=== PATIENT | male | born 1980 ===

== ENCOUNTER 2019-06-20 11:47 | Outpatient (CLI) | payer OTHER, SELFPAY ==
--- NOTE | 2019-06-20 | US_ITS ---
WS: [id number] RIGHT UPPER QUADRANT ULTRASOUND HISTORY: ELEVATED LIVER ENZYMES COMPARISON: None available. Liver: 22 cm in length. Markedly enlarged liver with diffuse attenuation and increased echogenicity. Incompletely visualized liver. Mass and intrahepatic dilatation cannot be excluded. Gallbladder: Gallbladder is poorly visualized. No stones are identified. CBD: 2.8 mm Pancreas: Not visualized. Right kidney: 11.2 cm in length. Normal echogenicity with no mass or hydronephrosis. Aorta and IVC: Unremarkable. No ascites. US/US liver [id number] IMPRESSION: 1. Significantly limited evaluation of RIGHT upper quadrant. 2. Severe hepatomegaly and hepatic steatosis. 3. Limited gallbladder, no evidence for acute cholecystitis.
== END 2019-06-20 11:48 | disposition home or self-care (01) ==
LOC: RADOUTREAD 06-21 11:47
PROVIDERS: Family Provider Internal Medicine; Visit Provider Family Medicine
DX: R74.8 Abnormal levels of other serum enzymes (principal); R16.0 Hepatomegaly, not elsewhere classified; K76.0 Fatty (change of) liver, not elsewhere classified
CPT/HCPCS: 76705

== ENCOUNTER 2025-04-10 18:13 | Inpatient (IN) | payer SELFPAY ==
[2025-04-10] VITALS (11 sets, daily range): BP systolic 139–180; BP diastolic 89–117; PULSE 74–106; RESP 16–27; TEMP 36.6–36.9; O2SAT 94–98; BMI 31.4; BMI 32.1
--- NOTE | 2025-04-10 18:14 | ECG_ITS ---
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 Measurements Intervals [place] Rate: 97 P: 51 AL: 138 QRS: 9 QRSD: 103 T: 26 QT: 348 QTc: 443 Interpretive Statements SINUS RHYTHM WITH SINUS ARRHYTHMIA NONSPECIFIC ST changes No previous ECG available for comparison Electronically Signed On 04-12-2025 17:47:11 WIRE CHARGER by Jag Dawson M.D. [id number] [id number]
--- OUTSIDE RECORDS SUMMARY | 2025-04-10 18:22 | XMS_ITS | Data Portability ---
Author Organization [facility]an [facility], [facility] Address [address] [address] [place] [address] Assessment No assessment recorded. Plan of Treatment Reminders Order Date Submit Date Provider Last Modified By Organization Details Last Modified Time Details Appointments None record ed. Lab None record ed. Referral None record ed. Procedures None record ed. Surgeries None record ed. Imaging None record ed. Medication Orders None record ed. Patient TargetsNo targets recorded. Patient InstructionsNo instructions recorded. Reason for Referral None Reported. Problems Name Problem SNOMED Code Status Onset Date Resolution Date Notes Provider Name and Address Organization Details Recorded Time Deviated nasal septum [id number] Active 2019 Deviated Septum; 0 1:30PM by Mago Ospina LPN, Office Visit; Promoted; acuity set as *; Not Available [facility] 3 03:12:30 Problem Notes None recorded. Procedures Surgical History Date Name Laterality Status Provider Name and Address Organization Details Recorded Time repair of nose completed Martita CHAMBERS Martinez [facility] LAngelLShell 10/17/2023 14:42:54 Imaging Results None recorded. Procedure Notes None recorded. Medical Equipment None Reported. Allergies No known drug allergies Vitals Date Recorded Body height Body mass index (BMI) Body weight Oxygen saturation Heart rate Respiratory rate Body temperature Systolic And Diastolic Provider Name and Address Organization Details Last Updated DateTime 4 180.34 cm 31.7 kg/m2 711572. 9 g 99 % 78 /min 17 /min 97.8 [degF] 160/110 mm[Hg] Martita CHAMBERS [facility] LAngelLShell 14:48:13 Social History Question Answer Notes LastModified by Organizat ion Details LastModified Time Tobacco Smoking Status Never Smoker REYES [facility] 10/17/2023 14:42:14 What Was The Date Of Your Most Recent Tobacco Screening? 10/17/2023 Information not available 10/17/2023 Sex: Unknown Functional Status Question Answer Note LastModified by Organizat ion Details LastModified Time Do you use any illicit or recreational drugs? No Information not available 10/17/2023 What is your level of alcohol consumption? Occasional Information not available 10/17/2023 Mental Status None recorded. Family History Nothing Reported. Medical History Condition Response Coronary Artery Disease N Gout N Other N Blood Diseases N Kidney Stones N Hyperthyroidism N Blood Transfusion N Breast Cancer N Depression N COPD N Lung Disease N Hypothyroidism N Developmental or Behavioral Disorders N Defects or Inherited Disease N Breast Problem N Difficulty Swallowing N Anesthesia Complications N Anxiety Disorder N Meniere's disease N Muscle, Joint, or Bone Problems N Vision or Eye Problems N Arthritis N Polyps N Infertility N Cancer N Varicosities N Stroke N Endometriosis N Bladder or Kidney Problems N High Cholesterol N Liver Disease N Headaches N Fibromyalgia N Kidney Disease N Allergies/Hayfever N Heart Problems N Ear or Hearing Problems N Hospitalizations N Thyroid Problems N GI Problems N ADD/ADHD N Skin Problems N Eating Disorder N Anemia N Constipation N Mental Illness N Ovarian Cancer N Diabetes N Bedwetting N Seizures/Epilepsy N Tuberculosis N Eczema N Diverticulitis N Abuse/Domestic Violence N Asthma N Reflux/GERD N Hepatitis N Heart Disease N Pulmonary Embolism N Chronic Ear Infections N Pre-Eclampsia N Hypertension N Chicken Pox N Autism Spectrum Disorder (ASD) N Osteoporosis N Thrombophilias N Immunizations Vaccine Type Date Status Note Provider Nam e and Address Organization Details Recorded Time Tdap 09/15/2016 completed Martita min [place] Lynda [facility] 10/17/2023 14:38:50 Td (adult) 06/08/2019 completed Not Available [facility] 12/12/2022 02:27:33 Past Encounters Encounter ID Performer Location Encounter Start Date Encounter Closed Date Diagnosis/Indication Diagnosis SNOMED-CT Code Diagnosis ICD10 Code Diagnosis IMO Codes Diagnosis Note [id number] TANK JOSÉ MANUEL ZAZUETA [facility] ([facility]) [address] [place] [address] 10/17/2023 14:34:07 10/20/2023 07:42:09 Prepatellar bursitis of right knee [id number] 58521 M70.41 MANISH bandage applied. Discussed to wear MANISH for next week for compressio n, apply ice for 10 minutes every 2 hours, limit bending down and applying weight to the right knee. Showed patient an example of knee protectors to wear to prevent this from ocurring in the future. Continue ibuprofen. F/u if symptoms persist after next 1 week. Health Concerns Section Related Observation LastModified by Organization Detai ls LastModified Time None Recorded Concern Status LastModified by Organization Details LastModified Time None Recorded Advance Directives Directive None Recorded Payers Insurance Date Sequence Insurance Name Policy Number Policy Prado Covered Member ID Prado Member ID Guarantor Name 10/17/2023 1 [facility] (MEDICAID REPLACEMENT - HMO) [facility] Maverick Anderson [id number] Maverick Anderson Notes Date Note Type Note Provider Name and Address Organization Details Recorded Time 4 text/html Musculoskeletal PainReported by PatientHPIFor quality, patient reportssharpanddull. For severity, patient reportsworsening,interferes with sleep, andinterferes with work/school. For location, patient reportsright knee. For duration, patient reportspresent <1 month. For timing, patient reportsdate of onset: (),constant, andsudden. For context, patient reportstraumaandunusual activity. For alleviating factors, patient reportsrest,changing position, andmedications: motrin, tylenol. For aggravating factors, patient reportsmovement/positioning ,bending over, andtwisting. For associated symptoms, patient reportsno fever,no weak limbs,no tingling,no numbness of the legs/feet, andno incontinence.ROS as noted in the HPI Pt reports pain in right knee. Knee has been swollen. He stands on concrete with his job and is on his knees working. night, discomfort and swelling started. Bought a brace to help. Has taken 2 ibuprofen and 1 Tylenol every 6 hours, with some relief.Denies trauma to the knee. TANK ZAZUETA, FANCY SEWER [address] [place], [address], [facility] 10/18/2023 07:48:52
--- NOTE | 2025-04-10 18:50 | W.ED.ARRPALP ---
Documented by User: CARLOS Espana 04/10/25 20:54 HPI - Arrhythmia/Palpitations General: Chief Complaint: Arrhythmia/Palpitations Stated Complaint: high bp History of Present Illness: Patient is a pleasant 44-year-old gentleman without primary care, on no medications, presents to the emergency room with palpitations, and chest pain. He describes his transient chest pain this morning, as his esophagus being squeezed. Patient is a dry wall installations mechanic, was working on his shop, stood up, had a headache, palpitations. He blamed it on carbon oxide in the garage he was working on. His uncle took his blood pressure which was notably very high. His uncle gave him 1 to his lisinopril/HCTZ, and baby aspirin. This occurred at 9 AM this morning. He is just now seeking care. He does not have chest pain, or palpitations at this time. He denies any symptoms of shortness of breath. He had mild nausea and diaphoresis. This resolved quickly this morning. Initial EKG does not show any ST segment elevation. There are Q waves in lead III. Associated symptoms: Reports nausea; Deny anxiety or vomiting Related Data Home Medications ?Medication ?Instructions ?Recorded ?Confirmed acetaminophen 325 mg tablet 650 mg PO PRN 04/11/25 04/11/25 (Tylenol) pseudoephedrine HCl 30 mg tablet 30 mg PO Q6H PRN Congestion 04/11/25 04/11/25 (Sudafed) Allergies Allergy/AdvReac Type Severity Reaction Status Date / Time No Known Allergies Allergy Verified 04/10/25 18:24 Review of Systems General: Reports: 10 or more systems reviewed and unremarkable except in HPI and below Const: Denies: fever(s) or chills ENMT: Denies: throat pain or mouth pain Card: Reports: chest pain (earlier), palpitations and lightheadedness; Denies: irregular heart rhythm Resp: Reports: dyspnea (transient) GI: Reports: nausea; Denies: abdominal pain or vomiting : Denies: flank pain or difficulty urinating Musc: Denies: neck pain or back pain Skin/Breast: Denies: rash or pruritus Neuro: Reports: headache(s); Denies: numbness in extremities Psych: Denies: anxiety or depression Physical Exam Const: COMMON NORMALS: no acute distress, average body habitus, patient oriented x3, no limitations, healthy appearing, alert and well nourished HENMT: COMMON NORMALS: normocephalic and atraumatic HEAD & SCALP: normocephalic and atraumatic Neck/C-Spine: COMMON NORMALS: full ROM and no lymphadenopathy Lymph: LYMPHATIC: no lymphadenopathy noted Chest: COMMONS NORMALS: normal inspection of the chest and normal palpation of entire chest wall Resp: COMMON NORMALS: normal respiratory effort, No retractions, No use of accessory muscles and clear to auscultation bilaterally EFFORT & INSPECTION: Yes able to speak in complete sentences AUSCULTATION: clear to auscultation bilaterally Cardio: COMMON NORMALS: regular rate and regular rhythm RATE: regular rate RHYTHM: regular rhythm GI: COMMON NORMALS: Normal to inspection, nondistended, normoactive bowel sounds present, Soft to palpation, non-tender and No hepatosplenomegaly present PALPATION: Yes Soft to palpation and Yes No hepatosplenomegaly present : COMMON NORMALS: Yes no CVA tenderness BLADDER/KIDNEY EXAM: Yes no CVA tenderness Back/Pelvis: COMMON NORMALS: no CVA tenderness and thoracic and lumbar spine normal to inspection Extremity: COMMON NORMALS: normal to inspection and capillary refill normal Neuro: COMMON NORMALS: patient oriented x3, CN's II-XII intact bilaterally and moves all extremities SENSORIUM/ORIENTATION: Yes alert Psych: COMMON NORMALS: mental status grossly normal, Normal thought process present and cooperative THOUGHT PROCESS: Normal thought process present Course Consultations: Consultation #1: D/w Dr. Rapp, cardiology, that we will consult in a.m. unless patient has continued chest pain at which time we can call him again Consultation #2: D/w Dr. Wise accepted admission Vital Signs: Vital signs: Vital Signs Temperature 97.9 F 04/10/25 23:54 Pulse Rate 77 04/11/25 04:00 Respiratory Rate 26 H 04/11/25 04:00 Blood Pressure 150/98 04/11/25 04:00 Pulse Oximetry 96 04/11/25 04:00 Oxygen Delivery Me thod Room Air 04/10/25 23:54 MDM - Arrhythmia/Palpitations Medical Decision Making Patient is a 44-year-old gentleman that presents to the ED with a squeezing esophagus type pain, associated with palpitations, shortness of breath, mild nausea, lightheadedness, and minimal sweating, that resolved and was transient this morning. His initial EKG showed Q waves in lead III. His uncle gave him lisinopril/HCTZ that belonged to him when he noted his blood pressure was high, and a baby aspirin. He sought care this afternoon with resolved symptoms. Blood pressure was high on presentation. Workup was started. Patient was noted to have NSTEMI, and a Q wave IN with initial troponin elevated at 975. Discussed the case with on-call placement director the recommended heparinizing patient, nitroglycerin paste. He will consult in a.m. and less needed tonight. He has received his aspirin full dose. Dr. Wise accepted admission as hospitalist. Discussed with attending/Dr. Pack. Medical Records I reviewed the patient's medical records. Lab Data I reviewed the patient's lab results. 04/10/25 18:46 04/10/25 18:46 Radiology Impressions Chest X-Ray 04/10/25 19:28 IMPRESSION: No acute findings. Laboratory Results WBC 14.10 10^3/uL (3.29-11.43) H 04/10/25 18:46 RBC 3.27 10^6/uL (3.85-5.65) L 04/10/25 18:46 Hgb 11.40 g/dL (11.27-16.99) 04/10/25 18:46 Hct 31.1 % (37-53) L 04/10/25 18:46 MCV 95.1 fl (82-101) 04/10/25 18:46 MCH 34.9 pg (27-33) H 04/10/25 18:46 MCHC 36.7 g/dL (30-55) 04/10/25 18:46 RDW 13.2 % (12.1-15.1) 04/10/25 18:46 Plt Count 131 10^3/cmm (157-399) L 04/10/25 18:46 MPV 9.4 fL (7.4-10.4) 04/10/25 18:46 Neut % (Auto) 4.5 % 04/10/25 18:46 Lymph % (Auto) 47.7 % 04/10/25 18:46 [place] % (Auto) 47.2 % 04/10/25 18:46 Eos % (Auto) 0.2 % 04/10/25 18:46 Baso % (Auto) 0.1 % 04/10/25 18:46 Neut # (Auto) 0.62 10^3/uL (1.8-7.7) L* 04/10/25 18:46 Lymph # (Auto) 6.7 10^3/uL (0.8-4.8) H 04/10/25 18:46 [place] # (Auto) 6.7 10^3/uL (0.2-0.9) H 04/10/25 18:46 Eos # (Auto) 0.0 10^3/uL (0.0-0.8) 04/10/25 18:46 Baso # (Auto) 0.0 10^3/uL (0.0-0.1) 04/10/25 18:46 Nucleated RBC % (auto) 1.5 % 04/10/25 18:46 Nucleated RBCs # 0.2 /100WBC 04/10/25 18:46 APTT 28.9 SECONDS (23.9-36.7) 04/10/25 18:46 Sodium 136 mmol/L (136-145) 04/10/25 18:46 Potassium 4.0 mmol/L (3.5-5.1) 04/10/25 18:46 Chloride 98 mmol/L (98-107) 04/10/25 18:46 Carbon Dioxide 24 mmol/L (22-29) 04/10/25 18:46 Anion Gap 18.0 (5-19) 04/10/25 18:46 BUN 10 mg/dL (6-20) 04/10/25 18:46 Creatinine 0.8 mg/dL (0.7-1.2) 04/10/25 18:46 GFR Calculation 104.5 mL/min (90-130) 04/10/25 18:46 Glucose 129 mg/dL (65-115) H 04/10/25 18:46 Calculated Osmolality 283 mOsm/kg (285-295) L 04/10/25 18:46 Calcium 9.3 mg/dL (8.5-10.5) 04/10/25 18:46 Magnesium 2.1 mg/dL (1.7-2.3) 04/10/25 18:46 Total Bilirubin 0.7 mg/dL (0.15-1.2) 04/10/25 18:46 AST 68 U/L (0-40) H 04/10/25 18:46 ALT 20 U/L (0-41) 04/10/25 18:46 Alkaline Phosphatase 92 U/L (40-130) 04/10/25 18:46 Troponin T Baseline 976 ng/L (0-15) H* 04/10/25 18:46 Troponin T 120 Minute 1235 ng/L (0-15) H 04/10/25 20:48 Delta Troponin T 259 ABS# (0-10) H* 04/10/25 20:48 Total Protein 8.4 g/dL (6.6-8.7) 04/10/25 18:46 Albumin 4.7 g/dL (3.5-5.2) 04/10/25 18:46 Globulin 3.7 g/dL (1.3-4.6) 04/10/25 18:46 TSH 1.58 uIU/mL (0.27-4.20) 04/10/25 18:46 All radiology interpretation(s) finalized by discharge ED provider radiology interpretation(s): No acute findings EKG Data EKG 1: Interpretation: Q waves in lead III, nonspecific changes in aVF, LVH, normal axis, sinus rhythm, rate 97 Other EKG comments: Chest X-Ray 04/10/25 19:28 IMPRESSION: No acute findings. EKG 2: Interpretation: Q waves lead III, LVH nonspecific changes aVF Other EKG comments: Chest X-Ray 04/10/25 19:28 IMPRESSION: No acute findings. Discharge Plan Discharge Patient Disposition: Admitted As Inpatient Admit Provider: Mal Wise Clinical Impression: Acute non-ST elevation myocardial infarction (NSTEMI) Condition: Stable Coding Level of Care Code ED Claims Processor for Chg Fwd Documented by User: Pepito Pack DO 04/11/25 04:35 HPI - Arrhythmia/Palpitations General: Chief Complaint: Arrhythmia/Palpitations Stated Complaint: high bp Related Data Home Medications ?Medication ?Instructions ?Recorded ?Confirmed acetaminophen 325 mg tablet 650 mg PO PRN 04/11/25 04/11/25 (Tylenol) pseudoephedrine HCl 30 mg tablet 30 mg PO Q6H PRN Congestion 04/11/25 04/11/25 (Sudafed) Allergies Allergy/AdvReac Type Severity Reaction Status Date / Time No Known Allergies Allergy Verified 04/10/25 18:24 Course Vital Signs: Vital signs: Vital Signs Temperature 97.9 F 04/10/25 23:54 Pulse Rate 77 04/11/25 04:00 Respiratory Rate 26 H 04/11/25 04:00 Blood Pressure 150/98 04/11/25 04:00 Pulse Oximetry 96 04/11/25 04:00 Oxygen Delivery Me thod Room Air 04/10/25 23:54 MDM - Arrhythmia/Palpitations Medical Decision Making Patient is a 44-year-old gentleman that presents to the ED with a squeezing esophagus type pain, associated with palpitations, shortness of breath, mild nausea, lightheadedness, and minimal sweating, that resolved and was transient this morning. His initial EKG showed Q waves in lead III. His uncle gave him lisinopril/HCTZ that belonged to him when he noted his blood pressure was high, and a baby aspirin. He sought care this afternoon with resolved symptoms. Blood pressure was high on presentation. Workup was started. Patient was noted to have NSTEMI, and a Q wave IN with initial troponin elevated at 975. Discussed the case with on-call placement director the recommended heparinizing patient, nitroglycerin paste. He will consult in a.m. and less needed tonight. He has received his aspirin full dose. Dr. Wise accepted admission as hospitalist. Discussed with attending/Dr. Pack. Chart reviewed and patient discussed with midlevel. Agree with assessment and plan. Lab Data 04/10/25 18:46 04/10/25 18:46 Radiology Impressions Chest X-Ray 04/10/25 19:28 IMPRESSION: No acute findings. Laboratory Results WBC 14.10 10^3/uL (3.29-11.43) H 04/10/25 18:46 RBC 3.27 10^6/uL (3.85-5.65) L 04/10/25 18:46 Hgb 11.40 g/dL (11.27-16.99) 04/10/25 18:46 Hct 31.1 % (37-53) L 04/10/25 18:46 MCV 95.1 fl (82-101) 04/10/25 18:46 MCH 34.9 pg (27-33) H 04/10/25 18:46 MCHC 36.7 g/dL (30-55) 04/10/25 18:46 RDW 13.2 % (12.1-15.1) 04/10/25 18:46 Plt Count 131 10^3/cmm (157-399) L 04/10/25 18:46 MPV 9.4 fL (7.4-10.4) 04/10/25 18:46 Neut % (Auto) 4.5 % 04/10/25 18:46 Lymph % (Auto) 47.7 % 04/10/25 18:46 [place] % (Auto) 47.2 % 04/10/25 18:46 Eos % (Auto) 0.2 % 04/10/25 18:46 Baso % (Auto) 0.1 % 04/10/25 18:46 Neut # (Auto) 0.62 10^3/uL (1.8-7.7) L* 04/10/25 18:46 Lymph # (Auto) 6.7 10^3/uL (0.8-4.8) H 04/10/25 18:46 [place] # (Auto) 6.7 10^3/uL (0.2-0.9) H 04/10/25 18:46 Eos # (Auto) 0.0 10^3/uL (0.0-0.8) 04/10/25 18:46 Baso # (Auto) 0.0 10^3/uL (0.0-0.1) 04/10/25 18:46 Nucleated RBC % (auto) 1.5 % 04/10/25 18:46 Nucleated RBCs # 0.2 /100WBC 04/10/25 18:46 APTT 28.9 SECONDS (23.9-36.7) 04/10/25 18:46 Sodium 136 mmol/L (136-145) 04/10/25 18:46 Potassium 4.0 mmol/L (3.5-5.1) 04/10/25 18:46 Chloride 98 mmol/L (98-107) 04/10/25 18:46 Carbon Dioxide 24 mmol/L (22-29) 04/10/25 18:46 Anion Gap 18.0 (5-19) 04/10/25 18:46 BUN 10 mg/dL (6-20) 04/10/25 18:46 Creatinine 0.8 mg/dL (0.7-1.2) 04/10/25 18:46 GFR Calculation 104.5 mL/min (90-130) 04/10/25 18:46 Glucose 129 mg/dL (65-115) H 04/10/25 18:46 Calculated Osmolality 283 mOsm/kg (285-295) L 04/10/25 18:46 Calcium 9.3 mg/dL (8.5-10.5) 04/10/25 18:46 Magnesium 2.1 mg/dL (1.7-2.3) 04/10/25 18:46 Total Bilirubin 0.7 mg/dL (0.15-1.2) 04/10/25 18:46 AST 68 U/L (0-40) H 04/10/25 18:46 ALT 20 U/L (0-41) 04/10/25 18:46 Alkaline Phosphatase 92 U/L (40-130) 04/10/25 18:46 Troponin T Baseline 976 ng/L (0-15) H* 04/10/25 18:46 Troponin T 120 Minute 1235 ng/L (0-15) H 04/10/25 20:48 Delta Troponin T 259 ABS# (0-10) H* 04/10/25 20:48 Total Protein 8.4 g/dL (6.6-8.7) 04/10/25 18:46 Albumin 4.7 g/dL (3.5-5.2) 04/10/25 18:46 Globulin 3.7 g/dL (1.3-4.6) 04/10/25 18:46 TSH 1.58 uIU/mL (0.27-4.20) 04/10/25 18:46 EKG Data EKG 1: Other EKG comments: Chest X-Ray 04/10/25 19:28 IMPRESSION: No acute findings. EKG 2: Other EKG comments: Chest X-Ray 04/10/25 19:28 IMPRESSION: No acute findings. Discharge Plan Discharge Patient Disposition: Admitted As Inpatient Admit Provider: Mal Wise Clinical Impression: Acute non-ST elevation myocardial infarction (NSTEMI) Condition: Stable Coding Level of Care Code ED Claims Processor for Tiffany Fuller
[2025-04-10 18:57] LABS: Hematocrit 31.1 % (37-53); Hemoglobin 11.40 g/dL (11.27-16.99); Mean Corpuscular HGB Conc 36.7 g/dL (30-55); Mean Corpuscular Hemoglobin 34.9 pg (27-33); Mean Corpuscular Volume 95.1 fl (82-101); Nucleated Red Blood Cells % 1.5 %; Platelet Count 131 10^3/cmm (157-399); Red Blood Count 3.27 10^6/uL (3.85-5.65); White Blood Count 14.10 10^3/uL (3.29-11.43)
[2025-04-10 19:18] LABS: Slide Review Slide Review Perform
--- NOTE | 2025-04-10 19:28 | XRR_ITS ---
PROCEDURE INFORMATION: Exam: XR Chest Exam date and time: 04/10/2025 7:28 PM Age: 44 years old Clinical indication: Pain; Chest pressure; Additional info: Chest pain TECHNIQUE: Imaging protocol: Radiologic exam of the chest. Views: 1 view. COMPARISON: No relevant prior studies available. FINDINGS: Lungs: No lung consolidation. Pleural spaces: Unremarkable. No pleural effusion. No pneumothorax. Heart/Mediastinum: Heart size is at the upper limit of normal. Mediastinal size is normal. 7 mm density projecting laterally of the left mid lung appears osseous in origin. Bones/joints: No acute osseous abnormality. XR/XR chest 1V portable [id number] IMPRESSION: No acute findings.
[2025-04-10 19:30] LABS: Alanine Aminotransferase 20 U/L (0-41); Albumin Level 4.7 g/dL (3.5-5.2); Alkaline Phosphatase 92 U/L (40-130); Anion Gap 18.0 (5-19); Aspartate Amino Transferase 68 U/L (0-40); Blood Urea Nitrogen 10 mg/dL (6-20); Calcium 9.3 mg/dL (8.5-10.5); Carbon Dioxide 24 mmol/L (22-29); Chloride 98 mmol/L (98-107); Globulin 3.7 g/dL (1.3-4.6); Glucose 129 mg/dL (65-115); Magnesium 2.1 mg/dL (1.7-2.3); Osmolality Calculated 283 mOsm/kg (285-295); Potassium 4.0 mmol/L (3.5-5.1); Sodium 136 mmol/L (136-145); Thyroid Stimulating Hormone 1.58 uIU/mL (0.27-4.20); Total Protein 8.4 g/dL (6.6-8.7)
[2025-04-10 19:37] LABS: Troponin(5th) Baseline 976 ng/L (0-15)
[2025-04-10 20:14] LABS: Partial Thromboplastin Time 28.9 SECONDS (23.9-36.7)
[2025-04-10] MEDS: nitroglycerin 1 gm/inch oint Pkt 0.5 INCH TOPICAL (20:26)
[2025-04-10] MEDS: heparin 5,000 unit/mL INJ 1 mL IVP (20:38)
[2025-04-10] MEDS: heparin drip 25,000 UNIT/500 ML PREMIX 24.49 UNIT IV (20:39)
--- NOTE | 2025-04-10 20:44 | ECG_ITS ---
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 Measurements Intervals [place] Rate: 98 P: 39 TN: 159 QRS: 0 QRSD: 90 T: 12 QT: 345 QTc: 441 Interpretive Statements SINUS RHYTHM NONSPECIFIC ST ELEVATION [0.05+ mV ST ELEVATION] Compared to ECG 04/10/2025 18:20:18 Sinus arrhythmia no longer present ST (T wave) deviation still present Electronically Signed On 04-12-2025 18:06:22 VAULT WORKER by Jag Dawson M.D. [id number]
[2025-04-10 21:34] LABS: Troponin 5 2HR 1235 ng/L (0-15); Troponin 5 2HR Delta 259 ABS# (0-10)
--- NOTE | 2025-04-10 22:00 | P.HP_ITS ---
Providers/Chief Complaint 2 Admitting Physician: Mal Wise MD Chief Complaint: high bp History of Present Illness Maverick Anderson is a 44 year old male with no formal diagnosed past medical history who presented with complaints of high blood pressure. 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 This sensation lasted about an hour and was described as a pressure in the chest. He then went home where he was able t check his BP which was about 170/120. With these symptoms and BP elevation, he went to the ED for further evaluation. During my encounter, he was without chest pain. He is a non-smoker and has no PCP Medications/Allergies Allergies Allergy/AdvReac Type Severity Reaction Status Date / Time No Known Allergies Allergy Verified 04/10/25 18:24 Vitals/I&O/Wt Last Vital Signs Temp 98.4 F 04/10/25 18:17 Pulse 98 04/10/25 20:44 Resp 16 04/10/25 18:17 BP 166/109 04/10/25 20:44 Pulse Ox 98 04/10/25 20:44 O2 Del Method Room Air 04/10/25 20:44 Weight last 48 hrs Weight 102.058 kg Physical Exam 2 Const: COMMON NORMALS: no acute distress and patient oriented x3 HENMT: COMMON NORMALS: normocephalic and atraumatic Chest: COMMONS NORMALS: normal inspection of the chest Resp: COMMON NORMALS: normal respiratory effort, No retractions and clear to auscultation bilaterally Cardio: COMMON NORMALS: regular rate, regular rhythm, S1 normal heart sound present, S2 normal heart sound present, No gallops present (Cardio), No clicks present (Cardio), No murmurs present (Cardio) and No rub (Cardio) GI: COMMON NORMALS: Normal to inspection, nondistended, normoactive bowel sounds present Extremity: OTHER: No edema Neuro: COMMON NORMALS: patient oriented x3 and CN's II-XII intact bilaterally Skin: COMMON NORMALS: no rashes or lesions noted Data 04/10/25 18:46 04/10/25 18:46 A&P Assessment and plan 1. Acute non-ST elevation myocardial infarction (NSTEMI): - ED has started on heparin infusion. Continue this. Troponin in critical range - Consult cardiology. PA for the ED has made contact with our medical technologist chemistry. They will see in the AM. Will defer to them on decision regarding further diagnostics - ASA given in the ED - NPO after midnight except sips and chip 2. Hypertension, unspecified type: - PRN labetalol for SBP>180 PDMP PDMP Reviewed: Not Reviewed Attestations 2 Medical Necessity Statement*: Patient will require greater than two midnights for evaluation and management of NSTEMI Coding Level of Care Code Acute Code for [facility] Diagnoses Acute non-ST elevation myocardial infarction (NSTEMI) I21.4 Hypertension, unspecified type I10 Hypertension type: unspecified
[2025-04-11] VITALS (56 sets, daily range): BP systolic 127–164; BP diastolic 89–109; PULSE 76–127; RESP 12–26; TEMP 37–37.1; O2SAT 94–100; BMI 31.4; BMI 30.9
[2025-04-11 01:57] LABS: Troponin 5 6HR 2016 ng/L (0-15)
[2025-04-11 01:58] LABS: Troponin 5 6HR Delta 1040 ng/L (0-12)
[2025-04-11 04:08] LABS: Partial Thromboplastin Time 46.8 SECONDS (23.9-36.7)
[2025-04-11 04:11] LABS: Estmated Average Glucose 108; Hemoglobin A1C 5.4 % (4.0-6.0)
[2025-04-11 04:14] LABS: Cholesterol 166 mg/dL (0-200); HDL Cholesterol 34 mg/dL (60-100); Triglycerides 357 mg/dL (0-150)
--- NOTE | 2025-04-11 07:58 | XACV_ITS ---
Exam Room: [facility] Ht: 180 cm Wt: 102 kg BSA: 2.28 m2 Gender: Male : 1980 Performing Physician(s): Dr. Dawson Any Known Allergies: No known allergies Exam Priority: Routine Procedure(s): Procedure Description: Diagnostic procedure Procedure Description: Left Heart Catheterization Procedure Description: Left ventriculography Procedure Description: Coronary Angiography Diagnostic Cath Status: Urgent Diagnostic Findings * Left main: Normal. * LAD: Minor irregularities. * Left circumflex artery: Minor irregularities. * RCA: Dominant large vessel. Mild 30% stenosis in the distal segment. No significant disease in the PDA and PLV branches. * Left ventriculogram: Normal LV size and LV systolic function.. LVEDP moderately elevated at 21 mmHg. Conclusions 1. 1. No significant coronary disease. 2. 2. Normal LV systolic function. 3. 3. Moderately elevated LVEDP, likely due to uncontrolled hypertension. Recommendations * Aggressive management of risk factors, especially blood pressure. Interventional RX Recommendation: none Diagnostic RX Recommendation: medical therapy and/or counseling Post Op Diagnosis: Description: NSTEMI LV EDP: 21 mmHg Ventriculography Ejection Fraction: 65.0 % Left Ventriculography Findings: * Normal left ventricular size and systolic function.. Pressures Phase:Rest AO : 130 / 111 ( 122 ) @ 8:41:00 AM 153 / 92 ( 119 ) @ 8:48:00 AM 153 / 92 ( 119 ) @ 8:48:00 AM LV : 145 / 21 / 21 @ 8:47:00 AM 164 / -19 / 7 @ 8:48:00 AM 162 / -16 / 11 @ 8:48:00 AM Valves Phase:DefaultPhase AV : 0.0 @ 8:53:14 AM AV Mean Gradient: 0.0 @ 8:53:14 AM Clinical Evaluation EBL: 5mL-10mL Procedural Details Procedure Consent Obtained. Current Diagnosis : NSTEMI. Pre-Procedure Time Out. Identified patient by full name and date of as verbalized by the patient/guarantor. Does the consent match the physician's order: Yes. Accurate & Complete Informed Consent: Yes. Inpatient/Outpatient History & Physical on Chart: Yes. If H&P is completed, is and addenduem needed: No; If yes, is the addendum complete: N/A. Visualize and Verify Site with Patient/Guarantor: N/A. Relevant Radiology Images available: Yes. Pre-op teaching completed and patient verbalized understanding. The risks, benefits, and alternatives of sedation and/or procedure were discussed by physician. The patient agrees to continue. Procedure started. [facility] Clinical Fraility Score: 3: Managing Well. Yardmaster Indications: ACS > 24 hours. Chest Pain Symptom Assessment: Typical Angina Symptoms. Correct patient, site and procedure confirmed by cath team. Current diagnosis: NSTEMI. IV Site on Arrival: 18 gauge in the right anticubital. IV Fluids: 0.9% NaCl at KVO. 0 mL infused prior to optical laboratory mechanic. Pre Procedural Pulses: right dorsalis pedis was 3+. Pre Procedural Pulses: right posterior tibial was 3+. Pre Procedural Pulses: right radial was 3+. Oxygen started at 2liters/min via nasal canula. right groin was prepped with chloroprep then draped in the usual sterile fashion. right radial was prepped with chloroprep then draped in the usual sterile fashion. Baseline sample Acquired. HR: 91 BPM. Physician arrived. Physician scrubbed in. Immediate Pre-Procedure Time Out. Correct Patient: Yes; Correct Procedure: Yes; Correct Site: Yes; Correct Patient Position: Yes; Correct Supplies: Yes; Dried Flammable Prep: Yes; Blood Products Available: Yes;. Lidocaine 1% infiltrated to the right radial. Arterial access obtained. A 5 northern irish JL3.5 catheter in over wire. Multiple views taken of left coronary artery. Catheter removed over the exchange wire. A 5 northern ir[place] JR4 catheter in over wire. Multiple views taken of right coronary artery. Catheter removed over the exchange wire. EDP Sample taken: LV 145/21,21; HR: 86 BPM; SpO2: 100%. LV gram performed in SPRINGER @ 10 mL/second for a total of 30 mL. EDP Sample taken: LV 164/-20,7; HR: 92 BPM; SpO2: 100%. Pullback taken: LV 162/-17,11; AO 153/92(119); Mean: 0mmHg, Peak to Peak: 0mmHg, SEP: 11sec/min; HR: 88 BPM; SpO2: 100%. Catheter removed over the exchange wire. Vital chart was stopped. A TR Band was successful obtaining hemostatsis at the Right Radial artery insertion site. Post Procedure: Pulses reassessed and unchanged. PERRLA. Strong, equal hand interventional radiology tech bilaterally. No VTE prophylaxis required. Medication's Wasted: Lidocaine 1% = 18 mL. Medication's Wasted: Nitro = 49.8 mcg. Medication's Wasted: Other = Fentanyl 50 mcg. Total IV fluids: 230 mL. Estimated blood loss: 5mL-10mL. Post-op diagnosis: Non-obstructive CAD. Complications: None. Responsiveness - Normal response to verbal stimuli; alert and oriented, PERRLA. Airway - Unaffected, no intervention required; spontaneous ventilation. Circulation: W/N/L, pulses unchanged. Nausea/Vomiting: No. Procedure completed. Patient transferred by bed to 1st floor. Access Site Site: Right Radial artery Sheath Size: 6 Fr Hemostasis Method: TR Band Hemostasis Success: Successful Complication Findings: None. Procedure Medications Start: 8:21 AM Stop: 8:21 AM Medication: Plavix Amount: 600 mg Route: P.O. Start: 8:21 AM Stop: 8:21 AM Medication: Aspirin Amount: 81 mg Route: P.O. Start: 8:29 AM Stop: 8:29 AM Medication: Versed Amount: 1 mg Route: I.V. Start: 8:29 AM Stop: 8:29 AM Medication: Fentanyl Amount: 50 mcg Route: I.V. Start: 8:33 AM Stop: 8:33 AM Medication: 0.9% Saline Amount: 200 ml Route: I.V. bolus Start: 8:35 AM Stop: 8:35 AM Medication: Nitrogylcerin Amount: 200 mcg Route: I.A. Start: 8:41 AM Stop: 8:41 AM Medication: Versed Amount: 1 mg Route: I.V. I, the attending physician, have reviewed and verified all procedure medications. Yes, all medications given per verbal order History/Risk Factors Hypertension: Yes Dyslipidemia: No Peripheral Arterial Disease (PAD): No Myocardial Infarction (NE): No Obesity: No Renal Disease: No Prior Interventions PCI: No CABG: No Valve Surgery: No Report Signatures Finalized by Jag Dawson MD on 04/11/2025 09:28 AM
--- NOTE | 2025-04-11 08:02 | USCV_ITS ---
Maverick Anderson Age: 44 Gender: M : 1980 Exam Date: 04/11/2025 10:38 Ordering Phys: Cesia Magdaleno Technologist: Exam Location: [facility] – [place] Indication: ? mi BP: 157 / 110 HR: 81 Rhythm: Sinus Technical Quality: Adequate MEASUREMENTS (Male / Female) Normal Values 2D ECHO LV Diastolic Diameter PLAX 4.8 cm 4.2 - 5.9 / 3.9 - 5.3 cm IVS Diastolic Thickness 1.2 cm 0.6 - 1.0 / 0.6 - 0.9 cm IVS Systolic Thickness 1.9 cm LVPW Diastolic Thickness 1.3 cm 0.6 - 1.0 / 0.6 - 0.9 cm LVPW Systolic Thickness 1.7 cm LVOT Diameter 2.1 cm LV Ejection Fraction 2D Teich 68.1 % LV Ejection Fraction MOD 4C 70.5 % LV Ejection Fraction MOD 2C 71.8 % LV Ejection Fraction 2C AL 71.5 % LA Diameter 3.4 cm RA Systolic Volume 4C AL 34.3 ml RA Systolic Volume 4C MOD 33.4 ml LA Sys Volume AL 51.6 cm cubed LA Sys Volume Index AL 24.9 cm cubed/m squared Aorta at Sinotubular Diameter 3.0 cm DOPPLER AV Peak Velocity 107.0 cm/s LVOT Peak Velocity 78.0 cm/s AV Area Cont Eq vti 3.0 cm squared AV Area Cont Eq pk 2.5 cm squared MV Peak Velocity 89.0 cm/s MV Area PHT 4.1 cm squared Mitral E to A Ratio 0.9 TR Peak Velocity 170.0 cm/s TR Peak Gradient 11.6 mmHg TV Peak E Velocity 84.0 cm/s PV Peak Velocity 101.0 cm/s FINDINGS Left Ventricle Mild concentric left ventricle hypertrophy. Normal wall motion and thickening. Estimated LVEF normal at 60%. Right Ventricle Normal right ventricular size and systolic function. Right Atrium Normal right atrial size. Left Atrium Normal left atrial size. IA Septum Normal interatrial septum. Mitral Valve Structurally normal mitral valve. No mitral valve regurgitation. Aortic Valve Structurally normal trileaflet aortic valve. No aortic valve stenosis. Tricuspid Valve Structurally normal tricuspid valve. No tricuspid valve regurgitation. Pulmonic Valve Pulmonic valve not well visualized. Trace pulmonary valve regurgitation. Pericardium No pericardial effusion. Aorta Normal size aortic root and proximal ascending aorta. IVC Inferior vena cava not visualized. CONCLUSIONS Mild concentric LVH. Normal LV systolic function. Estimated LVEF normal 60%. Normal RV size and RV systolic function. Normal size right and left atria. No significant valvular abnormality noted. Jag Dawson MD (Electronically Signed) Final Date: 11 April 2025 15:42 S
--- NOTE | 2025-04-11 08:07 | PM.CONSULT ---
Providers/Reason For Consult Consulting Physician/Specialty*: Internal medicine/hospitalist Reason for Consult*: NSTEMI Requesting Physician: Dr. Posada Attending Physician: Rafat Posada History of Present Illness History of Present Illness Maverick Anderson is a 44 year old male with a history of untreated hypertension for a number of years who presented yesterday evening with lower chest pressure associated with chest tightness and diaphoresis. On arrival EKG was unremarkable however patient was admitted due to significant typical cardiac history. His troponin was markedly elevated and the subsequent EKG showed possible ST changes in the inferior leads. He was managed with IV heparin and Nitropaste. Currently he is asymptomatic. Clinically no heart failure. He does not have any significant risk factor except this elevated blood pressure for a while which was untreated. Review of Systems Narrative: Detailed 10 point systemic review unremarkable except for as mentioned above in the history apparent illness. Medications/Allergies Home Medications ?Medication ?Instructions ?Recorded ?Confirmed ?Last Taken ?Type acetaminophen 325 mg tablet 650 mg PO PRN 04/11/25 04/11/25 Unknown History (Tylenol) pseudoephedrine HCl 30 mg tablet 30 mg PO Q6H PRN Congestion 04/11/25 04/11/25 Unknown History (Sudafed) Allergies Allergy/AdvReac Type Severity Reaction Status Date / Time No Known Allergies Allergy Verified 04/10/25 18:24 Current Medications Generic Name Dose Route Start Last Admin Trade Name Freq PRN Reason Stop Dose Admin Heparin Sodium/Sodium Chloride 25,000 unit in 500 mls @ 24.494 mls/hr 04/10/25 19:45 04/11/25 04:34 Heparin Drip IV 13 unit/kg/hr CONT MARIANELA 26.54 mls/hr Protocol Titration 12 UNIT/KG/HR Vitals/I&O/Wt Last Vital Signs Temp 97.9 F 04/10/25 23:54 Pulse 80 04/11/25 06:00 Resp 26 H 04/11/25 04:00 BP 150/98 04/11/25 04:00 Pulse Ox 96 04/11/25 04:00 O2 Del Method Room Air 04/10/25 23:54 04/10/25 04/11/25 04/11/25 22:59 06:59 14:59 Intake Total 193.879 / 193.879 Balance 193.879 / 193.879 Weight last 48 hrs Weight 224 lb 13.944 oz Weight 230 lb 6.129 oz Weight 225 lb Physical Exam Narrative: Patient is lying comfortably. He is not in respiratory distress. His vitals are stable. Const: OTHER: Normal HENMT: OTHER: Normal Eye: OTHER: Normal Chest: OTHER: Normal chest. No tenderness no bruising. Resp: OTHER: Good air entry on chest auscultation bilaterally. No added sounds. Cardio: OTHER: Normal 1st and 2nd heart sounds. No added sounds. GI: OTHER: Abdomen soft nontender. Bowel sounds audible. Extremity: OTHER: No lower extremity edema. Distal pulses palpable bilaterally. Neuro: OTHER: Grossly intact and nonfocal. Skin: OTHER: Skin warm and dry Data 04/10/25 18:46 04/10/25 18:46 A&P Assessment and plan 1. Acute non-ST elevation myocardial infarction (NSTEMI): 44-year-old male with history of untreated hypertension for a number of years now with NSTEMI. Currently he is stable. No heart failure symptoms. Vitals are stable now cardiovascular exam unremarkable. Markedly elevated cardiac troponin enzymes. Plan: Cardiac catheterization this morning with the possible angioplasty. I explained the procedure to the patient in detail. Discussed risks and benefits. Answered all of his questions. Patient agreed for the procedure. 2. Hypertension, unspecified type: PDMP PDMP Reviewed: Not Reviewed Coding Level of Care Code 06628 Diagnoses Acute non-ST elevation myocardial infarction (NSTEMI) I21.4 Hypertension, unspecified type I10 Hypertension type: unspecified Time Spent (min) 30
--- NOTE | 2025-04-11 09:05 | PC.CHAP ---
Pastoral Care Encounter/Spiritual Assessment Type of Contact [] Declined procurement coordinator visit [] Patient/Family/Request visit [] Outpatient visit [] Follow-up visit [] Physician referral [] Code/Alert [] Routine visit [] Staff referral [] Actively dying [] Patient sleeping [] Family support [] [x] Out of room [] Palliative care [] [] Receiving care in room [] Pre-surgical visit [] Trauma [] Long length of stay [] ICU visit [] Other: Relational/Emotional Strength [] Patient feels connected with others/family/visitors/staff [] Distress [] Loneliness/isolation [] Abandonment Spirituality of Patient [] Person of Nilsa [] Attends Lutheran of their Nilsa [] Believes in Prayer [] Reads Bible or Baptism materials [] There are Spiritual issues to be addressed Dairy Laboratory Technician Interventions [] Prayer [] Active listening [] Non-anxious presence [] Spiritual/emotional support [] Crisis/trauma care [] Spiritual counseling [] Bereavement support [] Provided bereavement packet [] Provided Bible/devotional materials [] Provided toy/stuffed animal, coloring book to patient or family member [] Provided Communion [] Anointing/[place] [] Salvation [] Completed spiritual assessment [] Other: Impact on Illness or Injury [] Angry [] Fearful [] Anxious [] Often cries [] Exhaustion [] Unable to work [] Unable to attend yazidi [] Unable to walk/stand [] Unable to read [] Unable to drive [] Unable to eat/drink [] Unable to sleep [] Unable to be with family [] Patient intubated [] Other: Summary Time spent with patient
[2025-04-11 11:04] LABS: Partial Thromboplastin Time 25.9 SECONDS (23.9-36.7)
--- NOTE | 2025-04-11 12:40 | ECG_ITS ---
[facility] Test Date: 2025-04-10 Pat Name: Maverick Anderson Department: Room: 101 Gender: Male Slotter Operator: : 1980 Requested By: Odalis Mascorro Order Number: [id number] [place] MD: Jag Dawson M.D. Measurements Intervals [place] Rate: 84 P: 37 NC: 156 QRS: 8 QRSD: 96 T: 11 QT: 367 QTc: 434 Interpretive Statements SINUS RHYTHM WITH SINUS ARRHYTHMIA Compared to ECG 04/10/2025 18:20:18 ST (T wave) deviation no longer present Electronically Signed On 04-12-2025 18:06:32 EXTENSION WORK INSTRUCTOR by Jag Dawson M.D. [email or web address]
[2025-04-11 13:37] LABS: Hematocrit 30.3 % (37-53); Hemoglobin 10.90 g/dL (11.27-16.99); Mean Corpuscular HGB Conc 36.0 g/dL (30-55); Mean Corpuscular Hemoglobin 34.2 pg (27-33); Mean Corpuscular Volume 95.0 fl (82-101); Nucleated Red Blood Cells % 0.9 %; Platelet Count 110 10^3/cmm (157-399); Red Blood Count 3.19 10^6/uL (3.85-5.65); White Blood Count 13.34 10^3/uL (3.29-11.43)
[2025-04-11 13:48] LABS: Slide Review Slide Review Perform
[2025-04-11 13:58] LABS: LAB Peripheral Smear Sent for Review
[2025-04-11 14:38] LABS: Vitamin B12 821 pg/mL (232-1245)
--- NOTE | 2025-04-11 15:45 | P.PN_ITS ---
Vitals/I&O/Wt Last Vital Signs Temp 98.6 F 04/11/25 08:00 Pulse 89 04/11/25 12:00 Resp 20 H 04/11/25 12:00 BP 151/96 04/11/25 12:00 Pulse Ox 96 04/11/25 12:00 O2 Del Method Room Air 04/10/25 23:54 04/11/25 04/11/25 04/11/25 06:59 14:59 22:59 Intake Total 193.879 / 193.879 360 / 360 Balance 193.879 / 193.879 360 / 360 Weight last 48 hrs Weight 102 kg Weight 104.5 kg Weight 102.058 kg Data 04/11/25 13:22 04/10/25 18:46 A&P Assessment and plan 1. Cytopenia: Absolute neutrophil count 620 on 04/10. Repeat CBC obtained today, ANC 560. Noted mild thrombocytopenia, platelets 110. Noted mild anemia today as well 10.9. Leukocytosis 13.3. TSH reviewed, normal. Vitamin B12 requested, reviewed, normal. Folic acid requested, reviewed, normal. Requested peripheral smear. Discussed with hematology, concern with monocytosis, monocytes 52%, neutropenia, thrombocytopenia, mild anemia, new abnormalities, previously healthy young gentleman, concern for possible hematologic disorder, cannot exclude acute leukemia. Discussed with him. Reaching out to [facility] for transfer for further assessment including bone marrow assessment. Reassess blood counts. Follow-up peripheral smear. Obtain LDH, haptoglobin, reticulocyte count, DIC profile. Assess for HIV. 2. Acute non-ST elevation myocardial infarction (NSTEMI): Status post coronary angiography, without finding of any obstruction. Discussed with clinical registered nurse. Thought that thrombus had dislodged or dissolved. Discussed with him cardiology is recommending he continue aspirin and Plavix for 1 year. Continue with cardiovascular risk factor optimization, optimizing blood pressure control. Reviewed A1c, without sign of diabetes. Statin is added. Monitor for risk of bleeding with thrombocytopenia, antiplatelets. Reassess blood counts. Will discontinue heparin drip. 3. Hypertension, unspecified type: Hypertension on presentation, but continues to be hypertensive in the hospital. Added metoprolol, cardiology also started him on lisinopril HCTZ. PDMP PDMP Reviewed: Not Reviewed Attestations 2 Medical Necessity Statement*: Continue admission for assessment of management of new worsening cytopenia, with unexplained neutropenia, monocytosis, thrombocytopenia, anemia in in a young gentleman, consider from hematologic process, not excluding leukemia. Diagnoses Cytopenia D75.9 Acute non-ST elevation myocardial infarction (NSTEMI) I21.4 Hypertension, unspecified type I10 Hypertension type: unspecified
[2025-04-11 16:47] LABS: Reflex FDPQ test REFLEX FDP QUEST TES
[2025-04-11 16:49] LABS: Hematocrit 32.1 % (37-53); Retic Production Index 2.09
[2025-04-11 17:26] LABS: INR 1.03 (0.8-1.2); Prothrombin Time 14.20 SECONDS (12.1-14.9)
[2025-04-11 17:27] LABS: Partial Thromboplastin Time 28.2 SECONDS (23.9-36.7)
[2025-04-11 17:28] LABS: Fibrinogen 326 mg/dL (174-498)
[2025-04-11 19:05] LABS: HIV 1 & 2 Antigen Non-Reactive (Non-Reactiv)
--- NOTE | 2025-04-11 19:33 | PM.TDS ---
Transfer Summary Providers Date of Admission: 04/10/25 21:07 Date of Discharge/Transfer: 04/11/25 Attending Provider at Admission: Mal Wise MD Attending Provider at Transfer: Rafat Posada Transfer Plans: Anticipated date of transfer: 04/11/25. Diagnoses at Discharge Discharge Diagnosis 1. Cytopenia: 2. Acute non-ST elevation myocardial infarction (NSTEMI): 3. Hypertension, unspecified type: Reason for Visit Reason for Visit high bp Brief History: Maverick Anderson is a 44 year old male with no formal diagnosed past medical history who presented with complaints of high blood pressure. 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 This sensation lasted about an hour and was described as a pressure in the chest. He then went home where he was able t check his BP which was about 170/120. With these symptoms and BP elevation, he went to the ED for further evaluation. During my encounter, he was without chest pain. He is a non-smoker and has no PCP Hospital Course Hospital Course Continue with treatment with heparin anticoagulation, aspirin and Plavix. Troponin EKG series with continued rest to severely elevated troponin up as high as 1040, underwent coronary angiography with open coronary arteries. Consideration of possible dissolved or displaced clot. Echocardiogram obtained with mild concentric LVH, LVEF normal at 60%. Normal RV size and RV systolic function. Normal-sized right and left atria. Per cardiology recommendation to continue aspirin and Plavix for a year. For hypertension started on metoprolol succinate and lisinopril-HCTZ. Noted neutropenia, ANC 620 on admission overnight in ER and otherwise healthy patient, not on any medications, with mild leukocytosis of 14, platelets with mild thrombocytopenia 131, hemoglobin 11.4. CBC repeated today some persistent mild leukocytosis 13.3, mild anemia hemoglobin 10.9, platelets 110,000. ANC 560. Neutrophils 4.2%. Monocytes 52%. Lymphocytes 43.2% eosinophils 0.3. Without any symptoms of recent infection. Vitamin B12 obtained normal, folic acid normal, TSH normal. HIV obtained, nonreactive. Peripheral smear is requested. No significant liver parameter abnormality, minimal AST elevation 68. Afebrile. Not suggestive of HLH. DIC profile fibrinogen 326, D-dimer 18.94. LDH 544. Reticulocyte 2.6%. RPI reported as 2.09. Continued on heparin drip for now. Haptoglobin 228. Discussed with her accounts clerk with recommendation to further seek assessment at [facility] with concern of possible acute hematologic disorder. Discussed with patient and family, discussed with [facility] accepting team, accepted for further assessment management with BMT team. Physical Exam Narrative: Accompanied by family Const: COMMON NORMALS: patient oriented x3 and alert GENERAL APPEARANCE: cooperative ORIENTATION/CONSCIOUSNESS: Yes awake HENMT: COMMON NORMALS: oropharynx normal Neck/C-Spine: COMMON NORMALS: no JVD Resp: COMMON NORMALS: normal respiratory effort and clear to auscultation bilaterally AUSCULTATION: clear to auscultation bilaterally Cardio: COMMON NORMALS: no JVD, regular rhythm, S1 normal heart sound present, S2 normal heart sound present and No murmurs present (Cardio) RHYTHM: regular rhythm HEART SOUNDS: S1 normal heart sound present and S2 normal heart sound present GI: COMMON NORMALS: Normal to inspection, nondistended, normoactive bowel sounds present, Soft to palpation and non-tender PALPATION: Yes Soft to palpation Extremity: COMMON NORMALS: no joint enlargement and no pedal edema Neuro: COMMON NORMALS: patient oriented x3 and moves all extremities SENSORIUM/ORIENTATION: Yes alert Skin: COMMON NORMALS: no rashes or lesions noted GENERAL SKIN EXAM: no rashes or lesions noted TS Data Studies Completed and Pending Pending at discharge Category Date Time Status Fibrinogen Degradation Product Routine Lab 04/11/25 16:47 Received Completed Studies During Hospitalization Category Date Time Status IMMUNOLOGY TEACHER request for service Routine Exams 04/11/25 07:58 Completed XR chest 1V portable [id number] Stat Exams 04/10/25 19:28 Completed CV. echo complete* [id number] Routine Ultrasound 04/11/25 08:02 Completed Laboratory Last Values WBC 13.34 10^3/uL (3.29-11.43) H 04/11/25 13:22 RBC 3.19 10^6/uL (3.85-5.65) L 04/11/25 13:22 Hgb 10.90 g/dL (11.27-16.99) L 04/11/25 13:22 Hct 32.1 % (37-53) L 04/11/25 16:38 MCV 95.0 fl (82-101) 04/11/25 13:22 MCH 34.2 pg (27-33) H 04/11/25 13:22 MCHC 36.0 g/dL (30-55) 04/11/25 13:22 RDW 13.6 % (12.1-15.1) 04/11/25 13:22 Plt Count 110 10^3/cmm (157-399) L 04/11/25 13:22 MPV 9.5 fL (7.4-10.4) 04/11/25 13:22 Neut % (Auto) 4.2 % 04/11/25 13:22 Lymph % (Auto) 43.2 % 04/11/25 13:22 Reeves % (Auto) 51.9 % 04/11/25 13:22 Eos % (Auto) 0.3 % 04/11/25 13:22 Baso % (Auto) 0.1 % 04/11/25 13:22 Reticulocyte % (Auto) 2.6 % (0.5-2.0) H 04/11/25 16:38 Neut # (Auto) 0.56 10^3/uL (1.8-7.7) L* 04/11/25 13:22 Lymph # (Auto) 5.8 10^3/uL (0.8-4.8) H 04/11/25 13:22 Reeves # (Auto) 6.9 10^3/uL (0.2-0.9) H 04/11/25 13:22 Eos # (Auto) 0.0 10^3/uL (0.0-0.8) 04/11/25 13:22 Baso # (Auto) 0.0 10^3/uL (0.0-0.1) 04/11/25 13:22 Nucleated RBC % (auto) 0.9 % 04/11/25 13:22 Nucleated RBCs # 0.1 /100WBC 04/11/25 13:22 Peripher Smr Path Cons Sent for review 04/11/25 13:22 Retic Production Index 2.09 04/11/25 16:38 Haptoglobin 228.0 mg/L (30-200) H 04/11/25 16:38 PT 14.20 SECONDS (12.1-14.9) 04/11/25 16:38 INR 1.03 (0.8-1.2) 04/11/25 16:38 APTT 28.2 SECONDS (23.9-36.7) 04/11/25 16:38 Fibrinogen 326 mg/dL (174-498) 04/11/25 16:38 D-Dimer 18.94 ug/mLFEU (0-0.59) H 04/11/25 16:38 Sodium 136 mmol/L (136-145) 04/10/25 18:46 Potassium 4.0 mmol/L (3.5-5.1) 04/10/25 18:46 Chloride 98 mmol/L (98-107) 04/10/25 18:46 Carbon Dioxide 24 mmol/L (22-29) 04/10/25 18:46 Anion Gap 18.0 (5-19) 04/10/25 18:46 BUN 10 mg/dL (6-20) 04/10/25 18:46 Creatinine 0.8 mg/dL (0.7-1.2) 04/10/25 18:46 GFR Calculation 104.5 mL/min (90-130) 04/10/25 18:46 Glucose 129 mg/dL (65-115) H 04/10/25 18:46 Estimat Average Glucose 108 04/11/25 03:15 Hemoglobin A1c 5.4 % (4.0-6.0) 04/11/25 03:15 Calculated Osmolality 283 mOsm/kg (285-295) L 04/10/25 18:46 Calcium 9.3 mg/dL (8.5-10.5) 04/10/25 18:46 Magnesium 2.1 mg/dL (1.7-2.3) 04/10/25 18:46 Total Bilirubin 0.7 mg/dL (0.15-1.2) 04/10/25 18:46 AST 68 U/L (0-40) H 04/10/25 18:46 ALT 20 U/L (0-41) 04/10/25 18:46 Alkaline Phosphatase 92 U/L (40-130) 04/10/25 18:46 Lactate Dehydrogenase 544 U/L (135-225) H 04/11/25 16:38 Troponin T Baseline 976 ng/L (0-15) H* 04/10/25 18:46 Troponin T 120 Minute 1235 ng/L (0-15) H 04/10/25 20:48 Delta Troponin T 259 ABS# (0-10) H* 04/10/25 20:48 Troponin T Hi Sens 6Hr 2016 ng/L (0-15) H 04/11/25 01:05 Troponin T Hi Sens 6Hr Delta 1040 ng/L (0-12) H* 04/11/25 01:05 Total Protein 8.4 g/dL (6.6-8.7) 04/10/25 18:46 Albumin 4.7 g/dL (3.5-5.2) 04/10/25 18:46 Globulin 3.7 g/dL (1.3-4.6) 04/10/25 18:46 Triglycerides 357 mg/dL (0-150) H 04/11/25 03:15 Cholesterol 166 mg/dL (0-200) 04/11/25 03:15 LDL Cholesterol, Calc 61 mg/dL (50-129) 04/11/25 03:15 HDL Cholesterol 34 mg/dL (60-100) L 04/11/25 03:15 LDL/HDL Ratio 1.79 RATIO (0.00-3.22) 04/11/25 03:15 Cholesterol/HDL Ratio 4.88 mg/dL (1.0-5.00) 04/11/25 03:15 Vitamin B12 821 pg/mL (232-1245) 04/11/25 03:15 Folate 8.0 ng/mL (4.5-32.2) 04/11/25 03:15 TSH 1.58 uIU/mL (0.27-4.20) 04/10/25 18:46 HIV 1&2 Ab & HIV 1 Ag Non-reactive (Non-Reactiv) 04/11/25 16:38 HIV 1&2 Antibody Non-reactive (Non-Reactiv) 04/11/25 16:38 Radiology Impressions Chest X-Ray 04/10/25 19:28 IMPRESSION: No acute findings. Recent Clincial Data Last Vital Signs Temp 98.6 F 04/11/25 08:00 Pulse 93 04/11/25 18:00 Resp 16 04/11/25 18:00 BP 138/98 04/11/25 18:00 Pulse Ox 95 04/11/25 18:00 O2 Del Method Room Air 04/11/25 18:00 Vital Signs Temp Pulse Resp BP BP Pulse Ox O2 Del Method 04/11/25 18:00 93 16 138/98 95 Room Air 04/11/25 16:00 106 H 18 164/109 97 04/11/25 14:00 106 H 04/11/25 14:00 88 15 100 Room Air 04/11/25 13:00 87 18 99 Room Air 04/11/25 12:00 94 12 97 04/11/25 12:00 89 20 H 151/96 96 04/11/25 11:00 102 H 14 95 Room Air 04/11/25 10:30 86 24 H 99 Room Air 04/11/25 08:00 98.6 F 79 21 H 150/99 96 Intake & Output/Weight 04/09/25 04/10/25 04/11/25 04/12/25 06:59 06:59 06:59 06:59 Intake Total 193.879 / 193.879 720 / 720 Balance 193.879 / 193.879 720 / 720 Weight 102 kg Vitals Last Vital Signs Temp 98.6 F 04/11/25 08:00 Pulse 93 04/11/25 18:00 Resp 16 04/11/25 18:00 BP 138/98 04/11/25 18:00 Pulse Ox 95 04/11/25 18:00 O2 Del Method Room Air 04/11/25 18:00 TS Medications Medications Acetaminophen (Acetaminophen 325 Mg Tablet) 650 mg PO Q6H PRN PRN Reason: Mild/Mod Pain Or Temp >/= 101 Aspirin (Aspirin 81 Mg Ec Tablet) 81 mg PO DAILY [facility] Atorvastatin Calcium (Atorvastatin 40 Mg Tablet) 40 mg PO BEDTIME MARIANELA Clopidogrel Bisulfate (Clopidogrel 75 Mg Tablet) 75 mg PO DAILY [facility] Labetalol HCl (Labetalol 5 Mg/Ml Sdv 20ml) 10 mg IVP Q4H PRN PRN Reason: HYPERTENSION Morphine Sulfate (Morphine 4 Mg/Ml Sdv 1 Ml) 2 mg IVP Q4H PRN PRN Reason: SEVERE PAIN Ondansetron HCl (Ondansetron 2 Mg/Ml Sdv 2 Ml) 4 mg IVP Q6H PRN PRN Reason: NAUSEA AND VOMITING Discontinued Medications Aspirin (Aspirin 81 Mg Chew Tablet) 324 mg PO NOW ONE Stop: 04/10/25 18:50 Last Admin: 04/10/25 19:18 Dose: 324 mg Aspirin (Aspirin 81 Mg Ec Tablet) 81 mg PO ONCE ONE Stop: 04/11/25 08:14 Last Admin: 04/11/25 19:21 Dose: Not Given Aspirin (Aspirin 81 Mg Ec Tablet) Confirm Administered Dose 81 mg .ROUTE .STK-MED ONE Stop: 04/11/25 08:18 Clopidogrel Bisulfate (Clopidogrel 300 Mg Tablet) 300 mg PO ONCE ONE Stop: 04/11/25 08:15 Last Admin: 04/11/25 19:22 Dose: Not Given Clopidogrel Bisulfate (Clopidogrel 300 Mg Tablet) Confirm Administered Dose 300 mg .ROUTE .STK-MED ONE Stop: 04/11/25 08:18 Clopidogrel Bisulfate (Clopidogrel 300 Mg Tablet) Confirm Administered Dose 300 mg .ROUTE .STK-MED ONE Stop: 04/11/25 08:28 Fentanyl (Fentanyl 50 Mcg/Ml Inj 2ml) Confirm Administered Dose 100 mcg .ROUTE .STK-MED ONE Stop: 04/11/25 07:58 Heparin Sodium (Porcine) (Heparin 5,000 Unit/Ml Inj 1 Ml) 0 unit IVP PRN PRN; Protocol PRN Reason: Heparin Weight Based Protocol -Subsequent Bolus Heparin Sodium (Porcine) (Heparin 5,000 Unit/Ml Inj 1 Ml) 0 unit IVP ONCE ONE; Protocol Stop: 04/10/25 19:43 Last Admin: 04/10/25 20:38 Dose: 5,000 unit Heparin Sodium (Porcine) (Heparin 5,000 Unit/Ml Inj 1 Ml) Confirm Administered Dose 5,000 unit .ROUTE .STK-MED ONE Stop: 04/11/25 07:53 Heparin Sodium (Porcine) (Heparin 5,000 Unit/Ml Inj 1 Ml) Confirm Administered Dose 5,000 unit .ROUTE .STK-MED ONE Stop: 04/11/25 07:59 Heparin Sodium/Sodium Chloride (Heparin Drip) 25,000 unit in 500 mls @ 24.494 mls/hr IV CONT MARIANELA; Protocol Last Titration: 04/11/25 04:34 Dose: 13 unit/kg/hr, 26.54 mls/hr Lidocaine HCl (Xylocaine) Confirm Administered Dose 20 mls @ as directed .ROUTE .STK-MED ONE Stop: 04/11/25 07:59 Sodium Chloride (Sodium Chloride 0.9%) Confirm Administered Dose 1,000 mls @ as directed .ROUTE .STK-MED ONE Stop: 04/11/25 08:14 Midazolam HCl (Midazolam 1 Mg/Ml Inj 2 Ml) Confirm Administered Dose 2 mg .ROUTE .STK-MED ONE Stop: 04/11/25 07:59 Nitroglycerin (Nitroglycerin 1 Gm/Inch Oint Pkt) 0.5 inch TOPICAL ONCE ONE Stop: 04/10/25 19:53 Last Admin: 04/10/25 20:26 Dose: 0.5 inch Nitroglycerin (Nitroglycerin 5 Mg/Ml Sdv 10 Ml) Confirm Administered Dose 50 mg .ROUTE .STK-MED ONE Stop: 04/11/25 07:58 Allergies No Known Allergies Allergy (Verified 04/10/25 18:24) Home Medications lisinopril 20 mg-hydrochlorothiazide 12.5 mg tablet 1 tab PO DAILY #30 tabs 04/10/25 [Rx] acetaminophen 325 mg tablet (Tylenol) 650 mg PO PRN 04/11/25 [History Confirmed 04/11/25] aspirin 81 mg tablet,delayed release 81 mg PO DAILY #90 tabs 04/11/25 [Rx] atorvastatin 40 mg tablet 40 mg PO BEDTIME #90 tabs 04/11/25 [Rx] clopidogrel 75 mg tablet 75 mg PO DAILY #90 tabs 04/11/25 [Rx] metoprolol succinate 25 mg capsule sprinkle, ext. release 24 hr 25 mg PO DAILY #90 ea 04/11/25 [Rx] Discharge Plan Discharge Patient Disposition: Home Condition: Stable Prescriptions: New lisinopril-hydrochlorothiazide 20-12.5 mg tablet 1 tab PO DAILY Qty: 30 0RF atorvastatin 40 mg Tablet 40 mg PO BEDTIME Qty: 90 4RF clopidogrel 75 mg Tablet 75 mg PO DAILY Qty: 90 4RF aspirin 81 mg Tablet,Delayed Release (Dr/Ec) 81 mg PO DAILY Qty: 90 4RF metoprolol succinate 25 mg capsule,sprinkle,ER 24hr 25 mg PO DAILY Qty: 90 0RF Continued acetaminophen [Tylenol] 325 mg Tablet 650 mg PO PRN Discontinued pseudoephedrine HCl [Sudafed] 30 mg Tablet 30 mg PO Q6H PRN (Reason: Congestion) Discharge Order = DC NOW: Discharge Order (Routine); Ordered 04/11/25 Ordered By: Jag Dawson Referrals: Melly Singleton NP [Nurse Practitioner, Family Practice] - 04/19/25 1:15 pm Cesia Magdaleno FNP [Nurse Practitioner, Cardiology] - 04/19/25 8:30 am Discharge Diet: Cardiac Patient Instructions: Metoprolol (By mouth), Lisinopril (By mouth), Aspirin (By mouth), Atorvastatin (By mouth), Clopidogrel (By mouth), Heart Attack (DC), Chronic Hypertension (DC), DASH Eating Plan (ED), Heart Catheterization (DC), Opioid Safety, Patient Portal & Christin Instructions Activity Restrictions/Additional Instructions: - Lab work in 2 weeks: BMP to check your kidneys. Case management is getting you a primary care physician to follow-up with. This will be on your paperwork. Please asked them to obtain a BMP on your follow-up. Transfer Attestations Time Spent in Transfer Care: greater than 30 min Quality Metrics Clinical Quality Measures [ Acute Myocardial Infaction { Clinical Trial Participant: No; Contraindication to aspirin: None; Aspirin prescribed; Contraindication to statin: None; Statin prescribed; Contraindication to PCI: Intervention not indicated;}] Coding Level of Care Code 05648 Total time (in minutes) for Discharge: 65 Diagnoses Cytopenia D75.9 Acute non-ST elevation myocardial infarction (NSTEMI) I21.4 Hypertension, unspecified type I10 Hypertension type: unspecified
[2025-04-11] MEDS: heparin drip 25,000 UNIT/500 ML PREMIX 24.14 UNIT IV (20:16)
[2025-04-11 22:47] LABS: Hematocrit 31.6 % (37-53); Hemoglobin 11.60 g/dL (11.27-16.99); Mean Corpuscular HGB Conc 36.7 g/dL (30-55); Mean Corpuscular Hemoglobin 34.8 pg (27-33); Mean Corpuscular Volume 94.9 fl (82-101); Platelet Count 122 10^3/cmm (157-399); Red Blood Count 3.33 10^6/uL (3.85-5.65); White Blood Count 18.54 10^3/uL (3.29-11.43)
[2025-04-12] VITALS (9 sets, daily range): BP systolic 121–149; BP diastolic 87–99; PULSE 83–93; RESP 14–24; O2SAT 94–97; BMI 30.4
[2025-04-12 00:39] LABS: Slide Review Slide Review Perform; Total Cells Counted 100 (0-100)
[2025-04-12 00:41] LABS: Absolute Segmented Neutrophil 0.6 10/cmm (1.6-7.1); Atypical Lymphs 3.0 % (0-5)
[2025-04-12 03:26] LABS: Hematocrit 33.3 % (37-53); Hemoglobin 11.10 g/dL (11.27-16.99); Mean Corpuscular HGB Conc 33.3 g/dL (30-55); Mean Corpuscular Hemoglobin 34.5 pg (27-33); Mean Corpuscular Volume 103.4 fl (82-101); Nucleated Red Blood Cells % 0.7 %; Platelet Count 117 10^3/cmm (157-399); Red Blood Count 3.22 10^6/uL (3.85-5.65); White Blood Count 19.71 10^3/uL (3.29-11.43)
[2025-04-12 03:40] LABS: Partial Thromboplastin Time 41.4 SECONDS (23.9-36.7)
[2025-04-12 03:51] LABS: Alanine Aminotransferase 19 U/L (0-41); Albumin Level 4.5 g/dL (3.5-5.2); Alkaline Phosphatase 88 U/L (40-130); Anion Gap 16.8 (5-19); Aspartate Amino Transferase 55 U/L (0-40); Blood Urea Nitrogen 12 mg/dL (6-20); Calcium 8.9 mg/dL (8.5-10.5); Carbon Dioxide 25 mmol/L (22-29); Chloride 97 mmol/L (98-107); Globulin 3.1 g/dL (1.3-4.6); Glucose 110 mg/dL (65-115); Osmolality Calculated 280 mOsm/kg (285-295); Potassium 3.8 mmol/L (3.5-5.1); Sodium 135 mmol/L (136-145); Total Protein 7.6 g/dL (6.6-8.7)
[2025-04-12 04:21] LABS: Slide Review Slide Review Perform
--- NOTE | 2025-04-12 07:25 | PC.NURSE ---
Patient placed on heparin gtt per Dr Posada.
--- NOTE | 2025-04-12 08:00 | PC.NURSE ---
Patient transferred via [facility] ambulance. [facility] aware and updated upon departure. Family notified and belongings sent with patient.
--- NOTE | 2025-04-12 10:21 | PM.PN ---
Subjective Subjective: Please refer to transfer summary from 04/11. Has been awaiting transport which is coming to pick him up early this morning. He reports he is feeling all right today. Vitals/I&O/Wt Last Vital Signs Temp 98.7 F 04/11/25 23:38 Pulse 91 04/12/25 09:29 Resp 14 04/12/25 09:29 BP 121/87 04/12/25 09:29 Pulse Ox 96 04/12/25 09:29 O2 Del Method Room Air 04/12/25 04:00 04/11/25 04/12/25 04/12/25 22:59 06:59 14:59 Intake Total 360 / 720 181.05 / 901.05 Balance 360 / 720 181.05 / 901.05 Weight last 48 hrs Weight 99 kg Weight 100.6 kg Weight 102 kg Weight 104.5 kg Weight 102.058 kg Physical Exam Narrative: Accompanied by family Const: COMMON NORMALS: patient oriented x3 and alert GENERAL APPEARANCE: cooperative ORIENTATION/CONSCIOUSNESS: Yes awake HENMT: COMMON NORMALS: oropharynx normal Neck/C-Spine: COMMON NORMALS: no JVD Resp: COMMON NORMALS: normal respiratory effort and clear to auscultation bilaterally AUSCULTATION: clear to auscultation bilaterally Cardio: COMMON NORMALS: no JVD, regular rhythm, S1 normal heart sound present, S2 normal heart sound present and No murmurs present (Cardio) RHYTHM: regular rhythm HEART SOUNDS: S1 normal heart sound present and S2 normal heart sound present GI: COMMON NORMALS: Normal to inspection, nondistended, normoactive bowel sounds present, Soft to palpation and non-tender PALPATION: Yes Soft to palpation Extremity: COMMON NORMALS: no joint enlargement and no pedal edema Neuro: COMMON NORMALS: patient oriented x3 and moves all extremities SENSORIUM/ORIENTATION: Yes alert Skin: COMMON NORMALS: no rashes or lesions noted GENERAL SKIN EXAM: no rashes or lesions noted Data 04/12/25 02:39 04/12/25 02:39 A&P Assessment and plan 1. Cytopenia: Pending transfer to [facility] for further workup of pancytopenia, neutropenia, transport picking up early this morning. Neutropenia, ANC 570 today. Hemoglobin 11, leukocytosis today up to 19.7, with noted blast cells 28% on review of CBC. Reviewed peripheral smear, still pending. Possible acute leukemia. Requested neutropenic precautions for him. Review HIV, nonreactive. D-dimer found elevated last night up to 19. Continued on heparin drip for now with concern for associated thrombophilia. Platelets reviewed, 117,000 today. Monitor for risk of bleeding. 2. Acute non-ST elevation myocardial infarction (NSTEMI): Status post coronary angiography, without finding of any obstruction. Discussed with utility plant operative. Thought that thrombus had dislodged or dissolved. Discussed with him cardiology is recommending he continue aspirin and Plavix for 1 year. Continue with cardiovascular risk factor optimization, optimizing blood pressure control. Reviewed A1c, without sign of diabetes. Statin is added. Monitor for risk of bleeding with thrombocytopenia, antiplatelets. Reassess blood counts. 3. Hypertension, unspecified type: Hypertension on presentation, but continues to be hypertensive in the hospital. Added metoprolol, cardiology also started him on lisinopril HCTZ. PDMP PDMP Reviewed: Not Reviewed Attestations Medical Necessity Statement*: Transferring to [facility] for further assessment. and High MDM includes number and complexity of problems actively addressed during encounter and described risk of complication, morbidity or mortality of management as documented Diagnoses Cytopenia D75.9 Acute non-ST elevation myocardial infarction (NSTEMI) I21.4 Hypertension, unspecified type I10 Hypertension type: unspecified
== END 2025-04-12 08:00 | disposition short-term general hospital (02) | DRG 814 ==
LOC: ER 20:54 → CSU 21:22
PROVIDERS: Emergency Medicine; Internal Medicine Cardiovascular Disease; Admitting Provider Family Medicine; Emergency Provider Physician Assistant; Visit Provider Internal Medicine
PROC: B2111ZZ Fluoroscopy of Multiple Coronary Arteries using Low Osmolar Contrast (ICD-10-PCS; principal; 2025-04-11 08:00)
DX: D75.9 Disease of blood and blood-forming organs, unspecified (principal); I21.4 Non-ST elevation (NSTEMI) myocardial infarction; D72.821 Monocytosis (symptomatic); I25.10 Atherosclerotic heart disease of native coronary artery without angina pectoris; I10 Essential (primary) hypertension; D70.9 Neutropenia, unspecified; D69.6 Thrombocytopenia, unspecified; Z79.82 Long term (current) use of aspirin; Z79.02 Long term (current) use of antithrombotics/antiplatelets
CPT/HCPCS: 36415; 71045; 80053; 80061; 80503; 82607; 82746; 83010; 83036; 83615; 83735; 84443; 84484; 85007; 85014; 85025; 85045; 85362; 85378; 85384; 85610; 85730; 87806; 93005; 93306; 93458; 96365; 96366; 96375; 99152; 99153; 99285; C1769; C1887; C1894; J1644; J2250; J3010; J3490; J7030; J9999; Q9967